=== PATIENT | female | born 1995 | race American Indian/Alaskan Native ===

== ENCOUNTER 2016-06-02 06:12 | Emergency (ER) | payer BC, OTHER ==
[2016-06-02 07:00] LABS: Bilirubin,Urine NEG (Negative); Blood,Urine NEG (Negative); Ketones,Urine 80 mg/dL (Negative); Leukocyte Esterase,Urine SM (Negative); Mucus,Urine FEW /HPF; Nitrite,Urine NEG (Negative); Protein,Urine <15 mg/dL mg/dL (Negative); Urobilinogen,Urine < 2.0 mg/dL (<2.0)
[2016-06-02 07:34] LABS: Basophils % (Auto) 0.6 % (0.0-1.8); Eosinophils % (Auto) 5.1 % (0.0-4.3); Hemoglobin 12.2 gm/dl (10.1-14.3); Mean Corpuscular HGB Conc 32 % (30-34); Mean Corpuscular Hemoglobin 27 pg (28-32); Mean Corpuscular Volume 83 fl (79-97); Platelet Count 341 K/mm3 (140-440); Red Blood Count 4.56 M/mm3 (3.65-5.03); Red Cell Distribution Width 13.3 % (13.2-15.2); White Blood Count 7.2 K/mm3 (4.5-11.0)
[2016-06-02 07:41] LABS: Alanine Aminotransferase 13 units/L (7-56); Albumin 3.8 g/dL (3.9-5); Albumin/Globulin Ratio 1.1 %; Alkaline Phosphatase 31 units/L (35-129); Anion Gap 18 mmol/L; Bilirubin,Total 0.3 mg/dL (0.1-1.2); Blood Urea Nitrogen 9 mg/dL (7-17); Calcium 8.4 mg/dL (8.4-10.2); Carbon Dioxide 21 mmol/L (22-30); Chloride 98.8 mmol/L (98-107); Glucose 87 mg/dL (65-100); Lipase 21 units/L (13-60); Potassium 3.2 mmol/L (3.6-5.0); Sodium 135 mmol/L (137-145); Total Protein 7.2 g/dL (6.3-8.2)
--- NOTE | 2016-06-02 09:59 | Ultrasound Report ---
ULTRASOUND OB LESS THAN 14 WEEKS ULTRASOUND OB TRANSVAGINAL HISTORY: Abdominal pain during . FINDINGS: Transabdominal and transvaginal ultrasound imaging was performed. The uterus is anteverted and measures 9 x 5 x 6 cm. An intrauterine gestational sac containing a pole and yolk sac is identified. Heart rate measures 107 beats per minute. [place]-rump length correlates with a 6 week, 0 day . Estimated due date is 01/26/17. A moderate subchorionic hemorrhage is identified along the anterior, inferior gestational sac. The cervix is unremarkable. The right ovary measures 4.3 x 2.7 x 3.5 cm and contains a simple 2.7 cm cyst. The left ovary is unremarkable measuring 3.5 x 1.4 x 1.4 cm. No pelvic fluid. IMPRESSION: Viable, single intrauterine dated at 6 weeks. Heart rate measures 107 beats per minute. Moderate subchorionic hemorrhage. 2.7 cm simple right ovarian cyst.
--- NOTE | 2016-06-02 10:11 | Emergency Department Report ---
HPI - General Chief Complaint: Abdominal Pain Time Seen by Provider: 06/02/16 07:37 - HPI HPI: Chief complaint: Nausea, diarrhea and abdominal pain HPI: Patient 21-year-old female who states for the last 3-4 days she's had lower abdominal pain with nausea and diarrhea. Patient's last period was April 25. Patient states she has a history of polycystic ovaries. Patient denies any vaginal bleeding. Patient denies dysuria or fever. Mode of arrival: private car Source: Patient Began: 3-4 days Duration: 4 days Context: See above Quality: Cramping Severity: 6 out of 10 Improved with: Nothing Worsened with: Nothing Associated signs and symptoms: See above ED Past Medical Hx - Social History Smoking Status: Never Smoker Substance Use Type: Alcohol - Medications Home Medications: Home Medications Medication Instructions Recorded Confirmed Last Taken Type Acetaminophen/Codeine [Tylenol #3] 1 tab PO Q6H PRN #15 tab 06/13/15 Unknown Rx Ibuprofen [Motrin 800 MG tab] 800 mg PO Q8HR PRN #21 tablet 06/13/15 Unknown Rx Ondansetron [Zofran Odt] 4 mg PO Q4H PRN #14 tab.rapdis 06/02/16 Unknown Rx ED Review of Systems ROS: Stated complaint: STOMACH PAIN,VOMITING,VOMITING Other details as noted in HPI ROS Constitutional: No fever ENT: No uri symptoms Cardiovascular: No chest pain Respiratory: No sob or cough GI: No vomiting : No dysuria frequency or urgency, Skin: No rash Neuro: No focal weakness or numbness Psych: No depression Navdeep/lymph: No edema Physical Exam - Physical Exam Vital Signs: Vital Signs 06/02/16 06/02/16 06/02/16 06:27 06:49 07:24 Temperature 97.8 F 97.8 F Pulse Rate 81 79 Respiratory 18 20 20 Rate Blood Pressure 104/72 Blood Pressure 114/82 [Right] O2 Sat by Pulse 100 100 100 Oximetry 06/02/16 07:30 Temperature Pulse Rate 68 Respiratory 16 Rate Blood Pressure Blood Pressure 93/65 [Right] O2 Sat by Pulse 100 Oximetry Physical Exam: GENERAL: The patient is well-developed well-nourished. HEENT: Normocephalic. Atraumatic. Extraocular motions are intact. Patient has moist mucous membranes. NECK: Supple. No meningitic signs are noted. There is no adenopathy noted. CHEST/LUNGS: Clear to auscultation. There is no respiratory distress noted. HEART/CARDIOVASCULAR: Regular. There is no tachycardia. There is no gallop rub or murmur. ABDOMEN: Abdomen is soft, nontender. Patient has normal bowel sounds. There is no abdominal distention. SKIN: There is no rash. There is no edema. There is no diaphoresis. NEURO: The patient is awake, alert, and oriented. The patient is cooperative. The patient has no focal neurologic deficits. The patient has normal speech. MUSCULOSKELETAL: There is no tenderness or deformity. There is no limitation range of motion. There is no evidence of acute injury. ED Course Vital Signs 06/02/16 06/02/16 06/02/16 06:27 06:49 07:24 Temperature 97.8 F 97.8 F Pulse Rate 81 79 Respiratory 18 20 20 Rate Blood Pressure 104/72 Blood Pressure 114/82 [Right] O2 Sat by Pulse 100 100 100 Oximetry 06/02/16 07:30 Temperature Pulse Rate 68 Respiratory 16 Rate Blood Pressure Blood Pressure 93/65 [Right] O2 Sat by Pulse 100 Oximetry ED Medical Decision Making - Lab Data Result diagrams: 06/02/16 07:09 06/02/16 07:09 - Radiology Data Radiology results: report reviewed (IUP 6 weeks 0 days moderate subchorionic bleed) Critical care attestation.: If time is entered above; I have spent that time in minutes in the direct care of this critically ill patient, excluding procedure time. ED Disposition Clinical Impression: Threatened miscarriage Disposition: DISCHARGED TO HOME OR SELFCARE Is pt being admited?: No Does the pt Need Aspirin: No Condition: Stable Instructions: Threatened Miscarriage (ED) Prescriptions: Ondansetron [Zofran Odt] 4 mg PO Q4H PRN #14 tab.rapdis PRN Reason: Nausea And Vomiting Referrals: [facility] [Provider Group] - 3-5 Days Time of Disposition: 10:12
[2016-06-02 10:36] VITALS: BP 133/80
== END 2016-06-02 10:36 | disposition home or self-care (01) ==
LOC: ED 06:12
DX: O20.0 Threatened abortion (principal); O26.891 Other specified pregnancy related conditions, first trimester; R19.7 Diarrhea, unspecified; R11.0 Nausea; Z3A.01 Less than 8 weeks gestation of pregnancy
CPT/HCPCS: 36415; 76801; 76817; 80053; 81001; 81025; 83690; 84702; 85025; 86900; 86901

== ENCOUNTER 2019-07-03 00:28 | Emergency (ER) | payer BC ==
--- NOTE | 2019-07-03 04:49 | XRay Report ---
LEFT ELBOW 3 VIEWS INDICATION / CLINICAL INFORMATION: Left elbow pain and swelling. No known injury. COMPARISON: None available. FINDINGS: BONES and JOINT(S): No acute fracture or subluxation. No significant arthritis. SOFT TISSUES: No significant abnormality. ADDITIONAL FINDINGS: None. IMPRESSION: No acute abnormality of the left elbow. Signer Name: Garfield Whitt MD Signed: 07/03/2019 4:45 AM Workstation Name: [id number]
[2019-07-03 05:01] LABS: BUN/Creatinine Ratio 13; Blood Urea Nitrogen 8 mg/dL (7-17); Calcium 9.5 mg/dL (8.4-10.2); Hemolysis Index 16
--- NOTE | 2019-07-03 05:35 | Emergency Department Report ---
Upper Extremity - [facility] Chief Complaint: Extremity Injury, Upper Stated Complaint: LEFT ARM PAIN Time Seen by Provider: 07/03/19 03:57 Upper Extremity: Left Arm, Left Elbow Occurred When: 3 Days Mechanism: Unsure Severity: severe Other History: 24-year-old -Turk[place] female presents to the emergency room complaining of left upper arm pain and swelling for 2 weeks. Patient states that she was working out. Patient reports that pain is not responding to [id number] ibuprofen. Patient denies any trauma. ED Review of Systems ROS: Stated complaint: LEFT ARM PAIN Other details as noted in HPI ED Past Medical Hx - Past Medical History Previous Medical History?: No - Surgical History Past Surgical History?: No - Social History Smoking Status: Never Smoker Substance Use Type: None - Medications Home Medications: Home Medications Medication Instructions Recorded Confirmed Last Taken Type Ondansetron [Zofran Odt] 4 mg PO Q4H PRN #14 tab.rapdis 06/02/16 Unknown Rx Acetaminophen/Codeine [Tylenol 1 tab PO Q6H PRN #12 tab 07/03/19 Unknown Rx /Codeine # 3 tab] Ibuprofen [Motrin 800 MG tab] 800 mg PO Q8HR PRN #21 tablet 07/03/19 Unknown Rx Upper Extremity Exam - Exam General: Vital signs noted. No distress. Alert and acting appropriately. ED Course Vital Signs 07/03/19 00:42 Temperature 97.9 F Pulse Rate 81 Respiratory 20 Rate Blood Pressure 117/76 O2 Sat by Pulse 99 Oximetry ED Medical Decision Making - Lab Data Result diagrams: 07/03/19 04:25 - Radiology Data Radiology results: report reviewed Patient: ALEXANDRA PAYNE MR# : [id number] : 1995 Acct:[id number] Age/Sex: 24 / F ADM Date: 07/03/19 Loc: ED Attending Dr: Ordering Physician: LES WHITFIELD Date of Service: 07/03/19 Procedure(s): VL venous duplex UE Accession Number(s): [id number] cc: LES WHITFIELD Left upper extremity venous Doppler INDICATION: left arm pain with swelling. COMPARISON: None available. FINDINGS: No superficial or deep venous thrombosis is identified sonographically. No other significant abnormality is seen along the included soft tissues. IMPRESSION: No sonographic evidence of DVT in the left upper extremity. Signer Name: Garfield Whitt MD Signed: 07/03/2019 7:56 AM Workstation Name: [id number] Transcribed By: IGOR Dictated By: Garfield Whitt MD Electronically Authenticated By: Garfield Whitt MD Signed Date/Time: 07/03/19 0756 DD/ 0754 TD/TT: - Medical Decision Making 24-year-old -Turk[place] female presents to the emergency room complaining of left upper arm pain and swelling for 2 weeks. Patient states that she was working out. Patient reports that pain is not responding to [id number] ibuprofen. Patient denies any trauma. X-ray of the elbow and arm is negative ultrasound for DVT is negative. Critical care attestation.: If time is entered above; I have spent that time in minutes in the direct care of this critically ill patient, excluding procedure time. ED Disposition Clinical Impression: Left arm pain, Swelling of left upper extremity Disposition: DC- TO HOME OR SELFCARE Is pt being admited?: No Does the pt Need Aspirin: No Condition: Stable Additional Instructions: The ultrasound report had no acute findings no blood clots. Continue with cold compresses for the next 2 days. then start warm compresses off and on for times a day. Follow up with primary care doctor or [facility]. Prescriptions: Ibuprofen [Motrin 800 MG tab] 800 mg PO Q8HR PRN #21 tablet PRN Reason: Pain Acetaminophen/Codeine [Tylenol /Codeine # 3 tab] 1 tab PO Q6H PRN #12 tab PRN Reason: Pain Referrals: KOKI CARDENAS MD [Primary Care Provider] - 3-5 Days
[2019-07-03] MEDS ORDERED: HYDROcodone/ACETAMINOPHEN 7.5-325MG TAB PO ONE (05:55)
[2019-07-03 08:31] VITALS: BP 100/54
--- NOTE | 2019-07-05 08:03 | Vascular Lab Report ---
Left upper extremity venous Doppler INDICATION: left arm pain with swelling. COMPARISON: None available. FINDINGS: No superficial or deep venous thrombosis is identified sonographically. No other significant abnormal ity is seen along the included soft tissues. IMPRESSION: No sonographic evidence of DVT in the left upper extremity. Signer Name: Garfield Whitt MD Signed: 07/03/2019 7:56 AM Workstation Name: [email or web address]
== END 2019-07-03 09:49 | disposition home or self-care (01) ==
LOC: ED 00:28
DX: M79.602 Pain in left arm (principal); M79.89 Other specified soft tissue disorders; Z79.899 Other long term (current) drug therapy
CPT/HCPCS: 36415; 80048; 82550